=== PATIENT | female | born 1950 | race Caucasian/White ===

== ENCOUNTER 2024-08-12 09:19 | Inpatient (IN) ==
[2024-08-01 10:47] LABS: Basophils # (Auto) 0.04 K/mcL (0.00-0.30); Eosinophils # (Auto) 0.11 K/mcL (0.00-0.70); Eosinophils % (Auto) 2.8 % (0.0-7.0); Hematocrit 39.1 % (34.1-44.9); Hemoglobin 12.6 g/dL (11.2-15.7); Lymphocytes # (Auto) 1.74 K/mcL (1.50-4.80); Lymphocytes % (Auto) 43.7 % (15.5-49.0); Mean Corpuscular HGB Conc 32.2 g/dL (31.0-36.0); Mean Platelet Volume 9.4 fL (8.8-12.5); Monocytes # (Auto) 0.29 K/mcL (0.10-0.90); Monocytes % (Auto) 7.3 % (1.0-12.0); Neutrophils % (Auto) 45.2 % (38.0-78.0); Platelet Count 189 K/mcL (140-440); RBC 4.03 M/mcL (3.59-5.38); Red Cell Distribution Width 12.8 % (11.5-14.5)
[2024-08-01 10:55] LABS: INR 0.9 (0.9-1.1); Prothrombin Time 13.3 sec (11.9-14.5)
[2024-08-01 11:10] LABS: ALT/SGPT 23 U/L (<40); AST/SGOT 30 U/L (<32); Albumin 4.2 gm/dL (3.2-5.2); Alkaline Phosphatase 80 U/L (39-117); Bilirubin,Total 0.4 mg/dL (0.1-1.0); Blood Urea Nitrogen 12 mg/dL (8-23); Calcium 9.2 mg/dL (8.6-10.4); Carbon Dioxide 28 mmol/L (22-30); Chloride 106 mmol/L (96-108); Globulin 2.1 gm/dL (2.2-3.7); Glomerular Filtration Rate 89; Glucose 86 mg/dL (70-105); Potassium 3.9 mmol/L (3.3-5.1); Sodium 143 mmol/L (133-145)
[2024-08-01 11:18] LABS: Appearance,Urine Clear (Clear); Bilirubin,Urine Negative (Negative); Color,Urine Yellow; Glucose,Urine (UA) Negative (Negative); Ketones,Urine Negative (Negative); Leukocyte Esterase,Urine Negative /uL (Negative); Nitrate,Urine Negative (Negative); PH,Urine 5.5 (5.0-9.0); Protein,Urine Negative (Negative); Specific Gravity,Urine 1.025 (1.000-1.035); Urine Blood Small ery/mcL (Negative); Urine RBC 8 /hpf (0-3); Urine Squamous Epithelial Cell 1 /hpf (0-4); Urine WBC 0 /hpf (0-4); Urobilinogen,Urine Normal
[2024-08-02 07:57] LABS: Hemoglobin A1C 5.3 % Hgb (4.0-6.0)
[2024-08-12] MEDS: oxyCODONE 10 MG TAB.ER.12H PO SCH (09:41)
[2024-08-12] MEDS: ACETAMINOPHEN 500 MG TABLET PO SCH (09:41)
[2024-08-12] MEDS: PREGABALIN 75 MG CAPSULE PO SCH (09:41)
[2024-08-12] MEDS: CELECOXIB 200 MG CAPSULE PO SCH (09:41)
[2024-08-12] MEDS ORDERED: MAGNESIUM SULFATE 2 GM/50 ML BAG IV ONE (11:43)
[2024-08-12] MEDS ORDERED: DEXAMETHASONE 10 MG/ML VIAL ONE (11:46)
[2024-08-12] MEDS ORDERED: ONDANSETRON 4 MG/2 ML VIAL ONE (11:46)
[2024-08-12] MEDS ORDERED: PROPOFOL 200 MG/20 ML VIAL IV ONE ×2 (11:48→12:07)
[2024-08-12] MEDS ORDERED: KETAMINE 50 MG/ML Syringe IV ONE (11:49)
[2024-08-12] MEDS ORDERED: LIDOCAINE 2% PF 5 ML VIAL ONE (12:10)
[2024-08-12] MEDS ORDERED: TRANEXAMIC ACID 1,000 MG/10 ML VIAL ONE (12:10)
[2024-08-12] MEDS: ceFAZolin 2 GM in DEXTROSE 5% IN WATER 50 ML IV SCH (12:24)
[2024-08-12] MEDS ORDERED: GLYCOPYRROLATE 0.2 MG/ML VIAL IV ONE ×2 (12:40→12:44)
[2024-08-12] MEDS ORDERED: PHENYLephrine 1 MG/10 ML SYRINGE (ANEST) ONE (13:03)
[2024-08-12] MEDS ORDERED: ONDANSETRON 4 MG/2 ML VIAL IV PRN ×2 (13:07→13:27)
[2024-08-12] MEDS ORDERED: IPRATROPIUM/ALBUTEROL 3 ML AMPUL.NEB NEB PRN (13:07)
[2024-08-12] MEDS: 0.9 % SODIUM CHLORIDE 9 ML, KETOROLAC 30 MG, ROPIVACAINE HCL/PF 49.5 ML, EPINEPHrine 0.... IJ SCH (13:10)
[2024-08-12] MEDS ORDERED: HYDROmorphone 1 MG/ML SYRINGE IV PRN (13:27)
[2024-08-12] MEDS ORDERED: BISACODYL 10 MG SUPP.RECT PR PRN (13:27)
[2024-08-12] MEDS ORDERED: MAGNESIUM HYDROXIDE 30 ML ORAL.SUSP PO PRN (13:27)
[2024-08-12] MEDS ORDERED: ACETAMINOPHEN 325 MG TABLET PO PRN (13:27)
[2024-08-12] MEDS ORDERED: FLEETS ADULT 1 DOSE ENEMA PR PRN (13:27)
[2024-08-12] MEDS ORDERED: ROPIVACAINE HCL/PF 30 ML VIAL IJ ONE (13:27)
[2024-08-12] MEDS ORDERED: POLYETHYLENE GLYCOL 3350 17 GM PACKET PO PRN (13:27)
[2024-08-12] MEDS: TRANEXAMIC ACID 1,000 MG/10 ML VIAL IV ONE (14:07)
[2024-08-12] MEDS: 0.9 % SODIUM CHLORIDE 10 ML SYRINGE IV SCH (14:30)
[2024-08-12] MEDS: 0.45 % SODIUM CHLORIDE 1,000 ML IV SCH (16:55)
[2024-08-12] MEDS: CALCIUM (OYSTER SHELL) 500 MG TABLET PO SCH (17:07)
[2024-08-12] MEDS: oxyCODONE/APAP 5/325MG TABLET PO PRN (19:20)
[2024-08-12] MEDS: ATORVASTATIN 20 MG TABLET PO SCH (20:26)
[2024-08-12] MEDS: SENNOSIDES 1 TABLET PO SCH (20:26)
[2024-08-12] MEDS: ceFAZolin 1 GM VIAL IV SCH (20:26)
[2024-08-13] MEDS: VITAMIN D3 25 MCG TABLET PO SCH (08:10)
[2024-08-13 12:41] VITALS: TEMP 98.6; O2SAT 95
== END 2024-08-13 11:43 | disposition home or self-care (01) | DRG 489 ==
LOC: MEDSUR 09:19
PROVIDERS: ADMIT Orthopaedic Surgery; ATTEND Orthopaedic Surgery